=== PATIENT | male | born 1965 | race Caucasian/White ===

== ENCOUNTER 2018-12-14 08:15 | Emergency (ER) | payer BC ==
[2018-12-14] MEDS ORDERED: ONDANSETRON HCL INJ/PF 4 MG/2 ML SDV IV ONE (09:33)
[2018-12-14] MEDS ORDERED: KETOROLAC TROMETHAMINE INJ/PF 30 MG/1 ML SDV IV ONE (09:34)
--- NOTE | 2018-12-14 09:36 | ER Document Report ---
ED General - General TRAVEL OUTSIDE OF THE [place] IN LAST 30 DAYS: No <IRMA BAILEY - Last Filed: 12/14/18 13:34> <AGUSTÍN DAVIS - Last Filed: 12/14/18 13:41> - General Chief Complaint: Flank Pain Stated Complaint: FLANK PAIN Time Seen by Provider: 12/14/18 09:30 Primary Care Provider: [facility] [Provider Group] - Follow up in 3-5 days - [facility] Notes: Patient is a 53-year-old male with no significant past medical history who presents emergency department complaining of sudden onset left flank pain that radiates around into his groin that began this morning. Patient states that the pain is intermittent and comes in waves. Patient describes the pain as a sharp pain. 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 Patient does have associated nausea without vomiting at this time. He is urinating normally and having normal bowel movements. No surgical history to his abdomen. Denies drug allergies. Denies any headache, fever, URI, sore throat, chest pain, palpitations, syncope, cough, shortness of breath, wheeze, dyspnea, abdominal pain, vomiting/diarrhea, urinary retention, dysuria, hematuria, loss of control of bowel or bladder, numbness/tingling, saddle anesthesia, muscle paralysis/weakness, or rash. (IRMA BAILEY) - Related Data Allergies/Adverse Reactions: No Known Allergies Allergy (Verified 12/14/18 09:28) Past Medical History - Social History Smoking Status: Never Smoker Frequency of alcohol use: None Drug Abuse: None Family History: Reviewed & Not Pertinent Patient has suicidal ideation: No Patient has homicidal ideation: No Renal/ Medical History: Denies: Hx Peritoneal Dialysis <IRMA BAILEY - Last Filed: 12/14/18 13:34> Review of Systems - Review of Systems -: Yes All other systems reviewed and negative <IRMA BAILEY - Last Filed: 12/14/18 13:34> Physical Exam <IRMA BAILEY - Last Filed: 12/14/18 13:34> - Vital signs Vitals: Temp Pulse Resp BP Pulse Ox 97.9 F 73 14 148/80 H 95 12/14/18 08:21 12/14/18 08:21 12/14/18 08:21 12/14/18 08:21 12/14/18 08:21 - Notes Notes: PHYSICAL EXAMINATION: GENERAL: Well-appearing, well-nourished and in no acute distress. LUNGS: Breath sounds clear to auscultation bilaterally and equal. No wheezes rales or rhonchi. HEART: Regular rate and rhythm without murmurs, rubs, gallops. ABDOMEN: Soft, nontender, nondistended abdomen. No guarding, no rebound. No masses appreciated. Normal bowel sounds present. + left CVA tenderness. No tenderness at [place]. [place] neg. Musculoskeletal: FROM to passive/active. Strength 5+/5. Back: FROM. Strength 5+/5. No foot drop. SLR neg. No vertebral point tenderness. Extremities: No cyanosis, clubbing, or edema b/l. Peripheral pulses 2+. Capillary refill less than 3 seconds. NEUROLOGICAL: Normal speech, normal gait. Normal sensory, motor exams PSYCH: Normal mood, normal affect. SKIN: Warm, Dry, normal turgor, no rashes or lesions noted. (IRMA BAILEY) Course - Laboratory Result Diagrams: 12/14/18 10:00 12/14/18 10:00 <IRMA BAILEY - Last Filed: 12/14/18 13:34> - Laboratory Result Diagrams: 12/14/18 10:00 12/14/18 10:00 <AGUSTÍN DAVIS - Last Filed: 12/14/18 13:41> - Re-evaluation Re-evalutation: 12/14/18 Patient is an afebrile, well-hydrated, 53-year-old male who presents the emergency department with a 7 mm ureteral stone on the left side. Vitals are acceptable without significant tachycardia, tachypnea, or hypoxia. PE is otherwise unremarkable. Abdomen is soft and nontender. CBC unremarkable. CMP acceptable although he does have a bump in his creatinine. Urinalysis shows no sign of infection. See CT scan report. Patient was given medicine through his IV as well as fluids. He is nontoxic-appearing and is tolerating p.o. without difficulty. Low suspicion/risk for urosepsis, acute appendicitis, bowel obstruction, acute cholecystitis, perforated diverticulitis, incarcerated hernia, pancreatitis, perforated ulcer, peritonitis, testicular torsion, or other systemic emergent condition at this time. Patient is aware that his condition can change from initial presentation and he needs to monitor symptoms closely and seek medical attention if any acute changes. I will send her home with prescription for morphine, Zofran, and Flomax. Conservative measures otherwise for symptoms. Recheck with PCM in 2-3 days. Patient to schedule an appointment with urology. Return to the ED with any worsening/concerning symptoms otherwise as reviewed in discharge. Patient is in agreement. (IRMA BAILEY) 12/14/18 13:40 Patient seen and evaluated by myself. Agree with APC workup and plan of care. Patient appears comfortable on my exam. He has no CVA tenderness and states his pain has resolved. He is in no acute distress. He has no questions and is in agreement with a plan of care. He does have an obstructing ureterolithiasis with mild LACY and was encouraged to follow closely with urology. (AGUSTÍN DAVIS) - Vital Signs Vital signs: Temp Pulse Resp BP Pulse Ox 97.9 F 73 14 148/80 H 95 12/14/18 08:21 12/14/18 08:21 12/14/18 08:21 12/14/18 08:21 12/14/18 08:21 - Laboratory Laboratory results interpreted by me: 12/14/18 12/14/18 12/14/18 10:00 10:00 12:16 Seg Neutrophils % 85.6 H Lymphocytes % 7.1 L Absolute Neutrophils 8.7 H BUN 21 H Creatinine 1.42 H Est GFR (Non-Af Amer) 52 L Glucose 124 H Urine Ketones 20 H Urine Urobilinogen 4.0 H Discharge <IRMA BAILEY - Last Filed: 12/14/18 13:34> <AGUSTÍN DAVIS - Last Filed: 12/14/18 13:41> - Discharge Clinical Impression: Left ureteral stone Condition: Stable Disposition: HOME, SELF-CARE Instructions: Kidney Stone ([facility]) Additional Instructions: Push fluids (i.e. water, cranberry juice) Proper hygenic technique Keep the skin clean Tylenol/ibuprofen as needed Take medications as directed F/u with your PCM in 2-3 days for a recheck Schedule an appointment with urology for further evaluation and management* Return to the ED with any worsening symptoms and/or development of fever, headache, chest pain, palpitations, syncope, shortness of breath, trouble breathing, abdominal pain, n/v/d, blood in stool/urine, loss of control of bowel/bladder, urinary retention, or other worsening symptoms that are concerning to you. Prescriptions: Morphine Sulfate [Morphine Ir 15 Mg Tablet] 15 mg PO TID PRN #15 tablet PRN Reason: Ondansetron [Zofran Odt 4 mg Tablet] 1 - 2 tab PO Q4H PRN #15 tab.rapdis PRN Reason: For Nausea/Vomiting Tamsulosin HCl [Flomax] 0.4 mg PO DAILY #10 cap.er.24h Forms: Elevated Blood Pressure Referrals: [facility] [Provider Group] - Follow up in 3-5 days
[2018-12-14] MEDS: NORMAL SALINE 1000 ML 1,000 ML IV PRN ×2 (10:05→11:09)
[2018-12-14 10:41] LABS: ABSOLUTE LYMPHOCYTES (AUTO) 0.7 10^3/uL (0.5-4.7); ABSOLUTE MONOCYTES (AUTO) 0.7 10^3/uL (0.1-1.4); ABSOLUTE NEUT (AUTO) 8.7 10^3/uL (1.7-8.2); BASOPHILS % (AUTO) 0.3 % (0-2); EOSINOPHILS % (AUTO) 0.5 % (0-6); HEMATOCRIT 47.2 % (37.9-51.0); HEMOGLOBIN 16.2 g/dL (13.5-17.0); LYMPHOCYTES % (AUTO) 7.1 % (13-45); MEAN CORPUSCULAR HEMOGLOBIN 29.4 pg (27.0-33.4); MEAN CORPUSCULAR HGB CONC 34.4 g/dL (32.0-36.0); MEAN CORPUSCULAR VOLUME 85 fl (80-97); MONOCYTES % (AUTO) 6.5 % (3-13); PLATELET COUNT 228 10^3/uL (150-450); RED BLOOD COUNT 5.53 10^6/uL (4.35-5.55); RED CELL DISTRIBUTION WIDTH 13.4 % (11.5-14.0); SEGMENTED NEUTROPHILS % (AUTO) 85.6 % (42-78); TOTAL CELLS COUNTED % (AUTO) 100 %; WHITE BLOOD COUNT 10.2 10^3/uL (4.0-10.5)
[2018-12-14 10:56] LABS: ALANINE AMINOTRANSFERASE 39 U/L (21-72); ALBUMIN 4.1 g/dL (3.5-5.0); ALKALINE PHOSPHATASE 95 U/L (38-126); ANION GAP 9 (5-19); ASPARTATE AMINO TRANSFERASE 37 U/L (17-59); BILIRUBIN,DIRECT 0.3 mg/dL (0.0-0.4); BILIRUBIN,TOTAL 1.2 mg/dL (0.2-1.3); BLOOD UREA NITROGEN 21 mg/dL (7-20); CALCIUM 9.7 mg/dL (8.4-10.2); CARBON DIOXIDE 26 mmol/L (22-30); CHLORIDE 105 mmol/L (98-107); GLUCOSE 124 mg/dL (75-110); POTASSIUM 3.9 mmol/L (3.6-5.0); SODIUM 140.1 mmol/L (137-145); TOTAL PROTEIN 7.4 g/dL (6.3-8.2)
--- NOTE | 2018-12-14 12:22 | RADIOLOGY REPORT (SQ) ---
EXAM DESCRIPTION: CT LTD RENAL STONE PROTOCOL ON COMPLETED DATE/TIME: 12/14/2018 12:08 pm REASON FOR STUDY: left flank pain COMPARISON: None. TECHNIQUE: CT scan of the abdomen and pelvis performed without intravenous or oral contrast. Images reviewed with lung, soft tissue, and bone windows. Reconstructed coronal and sagittal MPR images revi ewed. All images stored on PACS. All CT scanners at this facility use dose modulation, iterative reconstruction, and/or weight based d osing when appropriate to reduce radiation dose to as low as reasonably achievable (ALARA). [facility]: Dose Right [facility]: CareDose [facility]: Dose Right [facility]: Teradose 4D [facility]: [employer] RADIATION DOSE: CT Rad equipment meets quality standard of care and radiation dose reduction techniq ues were employed. CTDIvol: 17.6 mGy. DLP: 1064 mGy-cm.mGy. LIMITATIONS: None. FINDINGS: LOWER CHEST: No significant findings. No nodules or infiltrates. NON-CONTRASTED LIVER, SPLEEN, ADRENALS: Evaluation limited by lack of IV contrast. No identified sign ificant masses. PANCREAS: No masses. No peripancreatic inflammatory changes. GALLBLADDER: No identified stones by CT criteria. No inflammatory changes to suggest cholecystitis. RIGHT KIDNEY AND URETER: No suspicious masses. Assessment limited by lack of IV contrast. No signif icant calcifications. No hydronephrosis or hydroureter. LEFT KIDNEY AND URETER: No suspicious masses. Assessment limited by lack of IV contrast. There is a obstructing 7 mm stone at the ureteropelvic junction (Hounsfield units 830). There is mild fullness of the collecting system associated perinephric stranding. Additional punctate nonobstructing upper pole stone noted. AORTA AND RETROPERITONEUM: No aneurysm. No retroperitoneal masses or adenopathy. BOWEL AND PERITONEAL CAVITY: Scattered colonic diverticula. No focal wall thickening. No evidence o f intestinal obstruction. APPENDIX: Not visualized. PELVIS, BLADDER, AND ABDOMINAL WALL:No abnormal masses. No free fluid. Bladder normal. BONES: No significant findings. OTHER: No other significant finding. IMPRESSION: 1. Obstructing 7 mm stone at the left ureteropelvic junction with mild associated hydro nephrosis and perinephric stranding. 2. Additional punctate nonobstructing upper pole stone. COMMENT: Quality ID # [id number]: Final reports with documentation of one or more dose reduction techniques (e.g., Automated exposure control, adjustment of the mA and/or kV according to patient size, use of iterative reconstruction technique) TECHNICAL DOCUMENTATION: JOB ID: [id number] All Rights Reserved Reading location - IP/workstation name: [email or web address]
[2018-12-14] MEDS ORDERED: MORPHINE SULFATE 10 MG/ML INJ IV ONE (12:35)
[2018-12-14 13:27] LABS: APPEARANCE,URINE CLEAR; BILIRUBIN,URINE NEGATIVE (NEGATIVE); COLOR,URINE YELLOW; GLUCOSE, URINE NEGATIVE (NEGATIVE); KETONES,URINE 20 mg/dL (NEGATIVE); LEUKOCYTE ESTERASE,URINE NEGATIVE (NEGATIVE); NITRITE,URINE NEGATIVE (NEGATIVE); PROTEIN,URINE NEGATIVE (NEGATIVE); URINE SPECIFIC GRAVITY 1.017
[2018-12-14 14:04] VITALS: BP 150/75
== END 2018-12-14 14:04 | disposition home or self-care (01) ==
LOC: ER 08:15
DX: N20.1 Calculus of ureter (principal); R10.9 Unspecified abdominal pain
CPT/HCPCS: 99284; 96361; 96374; 96375; 36415; 85025; 80053; 81001; 76380; J1885; J2270; J2405; J7030